=== PATIENT | male | born 1960 | race Caucasian/White ===

== ENCOUNTER → 2017-06-28 10:03 | Emergency (ER) | payer OTHER ==
[~2017-06-28 10:03] MED LIST: NS 0.9% 1000 ML* 1,000 ML IV ONE
[2017-06-28 10:58] LABS: Hematocrit 46 % (42-52); Hemoglobin 15.5 g/dl (14.0-18.0); Mean Corpuscular HGB Conc 34 g/dl (31-36); Mean Corpuscular Hemoglobin 31 pg (27-31); Mean Corpuscular Volume 92 fL (80-94); Mean Platelet Volume 9 um3 (7.4-10.4); Red Blood Count 4.97 10^6/ul (4.0-5.4); Red Cell Distribution Width 13 % (10.5-15); White Blood Count 7.4 10^3/ul (3.5-10.8)
[2017-06-28 11:10] LABS: Albumin 4.2 g/dL (3.2-5.2); BUN/Creatinine Ratio 13.5 (8-20); C Reactive Protein 60.56 mg/L (< 5.00); Calcium 9.7 mg/dL (8.6-10.3); EGFR African American 113.3 (>60); EGFR Non-African American 88.1 (>60); Globulin 3.3 g/dL (2-4); Potassium 3.5 mmol/L (3.5-5.0); Total Protein 7.5 g/dL (6.4-8.9)
--- NOTE | 2017-06-28 11:34 | RAD ---
HISTORY: Jaundice, elevated LFTs and abdominal pain COMPARISONS: Similar ultrasound from the previous day that showed mild biliary duct dilatation. TECHNIQUE: Multiple transverse and longitudinal ultrasound images were obtained of the right upper quadrant. FINDINGS: LIVER: The liver is normal in dimensions and echogenicity. Normal hepatic and portal venous blood flow is duplicated with color flow imaging. There is no gross intrahepatic biliary duct dilatation. GALLBLADDER AND EXTRAHEPATIC BILIARY DUCT: The gallbladder appears completely filled with echogenic shadowing gallstones. There is no pericholecystic fluid or gallbladder wall thickening. The common bile duct measures a maximum diameter of 8 mm. PANCREAS: The portions of the pancreas not obscured by bowel gas are normal in appearance. RIGHT KIDNEY: The right kidney is normal in size, morphology and echogenicity. AORTA AND IVC: The visualized portions are normal in appearance and not pathologically dilated. IMPRESSION: CHOLELITHIASIS WITH A DILATED COMMON BILE DUCT CAN BE SEEN IN THE SETTING OF GALLSTONE BILIARY DUCT OBSTRUCTION. CLINICALLY WARRANTED FURTHER CHARACTERIZATION COULD BE MADE WITH A HIDA SCAN.
--- NOTE | 2017-06-28 13:11 | ED ---
Angelo Gamble Angela scribed for Gregory Garcia MD on 06/28/17 at 1024 . GI/ HPI - HPI Summary HPI Summary: This pt is a 57 y/o male presenting to [facility] referred by his PCP, Dr. Wyman, for elevated bilirubin and jaundice. Pt reports he was sent by Dr. Wyman for a possible blocked bile duct due to biliruin of 8.5. He states he had an US yesterday in [place] and was found to have multiple gallstones. Pt notes that he had abd pain that began 3 days ago (06/25), intermittent dark urine x2 days, nausea x2 days. Pt reports he has not eaten since 3 days ago, 06/25 at night. Today the pt denies any pain, nausea, vomiting. He states feeling well today, and better than the past few days. - History of Current Complaint Chief Complaint: EDAbdPain Time Seen by Provider: 06/28/17 10:15 Stated Complaint: DARK URINE/SENT BY DR WYMAN Hx Obtained From: Patient Onset/Duration: Started Days Ago, Resolved Timing: Lasting Days Current Severity: None Pain Intensity: 0 - none Location of Pain: Diffuse Associated Signs and Symptoms: Positive: Nausea - now resolved, Abdominal Pain - now resolved, Other: - elevated bilirubin, jaundice, dark urine. Negative: Vomiting - Allergy/Home Medications Allergies/Adverse Reactions: Allergies Allergy/AdvReac Type Severity Reaction Status Date / Time Ampicillin Allergy Severe Fever Verified 06/28/17 10:12 Sulfamethoxazole Allergy Severe Rash Verified 06/28/17 10:12 w/Trimethoprim [From Bactrim] Penicillins Allergy Unknown Unknown Verified 06/28/17 10:12 Reaction Details Sulfa Antibiotics Allergy Unknown Hives Verified 06/28/17 10:12 Amoxicillin Allergy See Comment Verified 06/28/17 10:12 PMH/Surg Hx/FS Hx/Imm Hx Endocrine/Hematology History: Denies: Hx Diabetes Cardiovascular History: Reports: Hx Angina Respiratory History: Denies: Hx Asthma, Hx Chronic Obstructive Pulmonary Disease (COPD) - Immunization History Date of Tetanus Vaccine: unknown Infectious Disease History: No Infectious Disease History: Denies: Traveled Outside the [place] in Last 30 Days - Family History Known Family History: Positive: Diabetes - father, Other - Father: afib Family History: Mother: no hx of CAD - Social History Alcohol Use: Rare Substance Use Type: Reports: None Smoking Status (MU): Never Smoked Tobacco Review of Systems Constitutional: Other - elevated bilirubin, decreased PO intake Negative: Fever, Chills Eyes: Negative Cardiovascular: Negative Respiratory: Negative Positive: Abdominal Pain - now resolved, Nausea - now resolved. Negative: Vomiting Genitourinary: Other - dark urine color Musculoskeletal: Negative Skin: Other - jaundice Neurological: Negative All Other Systems Reviewed And Are Negative: Yes Physical Exam - Summary Physical Exam Summary: VITAL SIGNS: Reviewed. GENERAL: Patient is a well-developed and nourished male who is lying comfortable in the stretcher. Patient is not in any acute respiratory distress. Patient is a little bit dry. HEAD AND FACE: No signs of trauma. No ecchymosis, hematomas or skull depressions. No sinus tenderness. EYES: PERRLA, EOMI x 2, No injected conjunctiva, no nystagmus. EARS: Hearing grossly intact. Ear canals and tympanic membranes are within normal limits. MOUTH: Oropharynx within normal limits. NECK: Supple, trachea is midline, no adenopathy, no JVD, no carotid bruit, no c- spine tenderness, neck with full ROM. CHEST: Symmetric, no tenderness at palpation LUNGS: Clear to auscultation bilaterally. No wheezing or crackles. CVS: Regular rate and rhythm, S1 and S2 present, no murmurs or gallops appreciated. ABDOMEN: Soft, non-tender. No signs of distention. No rebound no guarding, and no masses palpated. Bowel sounds are normal. EXTREMITIES: FROM in all major joints, no edema, no cyanosis or clubbing. NEURO: Alert and oriented x 3. No acute neurological deficits. Speech is normal and follows commands. SKIN: Dry and warm. Pt is jaundice. Triage Information Reviewed: Yes Vital Signs On Initial Exam: Initial Vitals Temp Pulse Resp BP Pulse Ox 97.3 F 86 16 139/86 96 06/28/17 10:08 06/28/17 10:08 06/28/17 10:08 06/28/17 10:08 06/28/17 10:08 Vital Signs Reviewed: Yes Diagnostics - Vital Signs Vital Signs Temp Pulse Resp BP Pulse Ox 06/28/17 10:08 97.3 F 86 16 139/86 96 - Laboratory Lab Results: Lab Results 12/02/17 12/02/17 12/02/17 Range/Units 10:35 10:35 10:35 WBC (3.5-10.8) 10^3/ul RBC (4.0-5.4) 10^6/ul Hgb (14.0-18.0) g/dl Hct (42-52) % MCV (80-94) fL MCH (27-31) pg MCHC (31-36) g/dl RDW (10.5-15) % Plt Count (150-450) 10^3/ul MPV (7.4-10.4) um3 Neut % (Auto) (38-83) % Lymph % (Auto) (25-47) % Bath % (Auto) (1-9) % Eos % (Auto) (0-6) % Baso % (Auto) (0-2) % Absolute Neuts (auto) (1.5-7.7) 10^3/ul Absolute Lymphs (auto) (1.0-4.8) 10^3/ul Absolute Monos (auto) (0-0.8) 10^3/ul Absolute Eos (auto) (0-0.6) 10^3/ul Absolute Basos (auto) (0-0.2) 10^3/ul Absolute Nucleated RBC 10^3/ul Nucleated RBC % INR (Anticoag Therapy) 0.94 (0.77-1.02) APTT 28.0 (26.0-36.3) seconds Sodium 134 (133-145) mmol/L Potassium 3.5 (3.5-5.0) mmol/L Chloride 98 L (101-111) mmol/L Carbon Dioxide 26 (22-32) mmol/L Anion Gap 10 (2-11) mmol/L BUN 12 (6-24) mg/dL Creatinine 0.89 (0.67-1.17) mg/dL Est GFR ( Amer) 113.3 (>60) Est GFR (Non-Af Amer) 88.1 (>60) BUN/Creatinine Ratio 13.5 (8-20) Glucose 127 H (70-100) mg/dL Calcium 9.7 (8.6-10.3) mg/dL Total Bilirubin 9.00 H (0.2-1.0) mg/dL AST 189 H (13-39) U/L ALT 508 H (7-52) U/L Alkaline Phosphatase 235 H (34-104) U/L Total Creatine Kinase 60 (10-223) U/L C-Reactive Protein 60.56 H (< 5.00) mg/L B-Natriuretic Peptide 78 ( - 100) pg/mL Total Protein 7.5 (6.4-8.9) g/dL Albumin 4.2 (3.2-5.2) g/dL Globulin 3.3 (2-4) g/dL Albumin/Globulin Ratio 1.3 (1-3) Amylase 16 L (29-103) U/L Lipase 103 H (11.0-82.0) U/L 06/28/17 Range/Units 10:35 WBC 7.4 (3.5-10.8) 10^3/ul RBC 4.97 (4.0-5.4) 10^6/ul Hgb 15.5 (14.0-18.0) g/dl Hct 46 (42-52) % MCV 92 (80-94) fL MCH 31 (27-31) pg MCHC 34 (31-36) g/dl RDW 13 (10.5-15) % Plt Count 198 (150-450) 10^3/ul MPV 9 (7.4-10.4) um3 Neut % (Auto) 74.1 (38-83) % Lymph % (Auto) 10.8 L (25-47) % Bath % (Auto) 13.7 H (1-9) % Eos % (Auto) 1.1 (0-6) % Baso % (Auto) 0.3 (0-2) % Absolute Neuts (auto) 5.5 (1.5-7.7) 10^3/ul Absolute Lymphs (auto) 0.8 L (1.0-4.8) 10^3/ul Absolute Monos (auto) 1.0 H (0-0.8) 10^3/ul Absolute Eos (auto) 0.1 (0-0.6) 10^3/ul Absolute Basos (auto) 0 (0-0.2) 10^3/ul Absolute Nucleated RBC 0.01 10^3/ul Nucleated RBC % 0.1 INR (Anticoag Therapy) (0.77-1.02) APTT (26.0-36.3) seconds Sodium (133-145) mmol/L Potassium (3.5-5.0) mmol/L Chloride (101-111) mmol/L Carbon Dioxide (22-32) mmol/L Anion Gap (2-11) mmol/L BUN (6-24) mg/dL Creatinine (0.67-1.17) mg/dL Est GFR ( Amer) (>60) Est GFR (Non-Af Amer) (>60) BUN/Creatinine Ratio (8-20) Glucose (70-100) mg/dL Calcium (8.6-10.3) mg/dL Total Bilirubin (0.2-1.0) mg/dL AST (13-39) U/L ALT (7-52) U/L Alkaline Phosphatase (34-104) U/L Total Creatine Kinase (10-223) U/L C-Reactive Protein (< 5.00) mg/L B-Natriuretic Peptide ( - 100) pg/mL Total Protein (6.4-8.9) g/dL Albumin (3.2-5.2) g/dL Globulin (2-4) g/dL Albumin/Globulin Ratio (1-3) Amylase (29-103) U/L Lipase (11.0-82.0) U/L Result Diagrams: 06/28/17 10:35 06/28/17 10:35 Lab Statement: Any lab studies that have been ordered have been reviewed, and results considered in the medical decision making process. - Ultrasound No standard instances Ultrasound Interpretation: Positive (See Comments) - Gallbladder US IMPRESSION: Cholelithiasis with a dilated common bile duct can be seen in the setting of gallstone biliary duct obstruction. As clinically warranted further characterization could be made with a hida scan. ED physician has reviewed this radiology report and agrees. Ultrasound Interpretation Completed By: Radiologist - EKG 1027 Cardiac Rate: NL EKG Rhythm: Sinus Rhythm - at 84 bpm EKG Interpretation: Left bundle branch block EKG Comparison: No Significant Change - unchanged from prior EKG done on . Re-Evaluation - Re-Evaluation First Eval Re-Evaluation Time: 12:55 Comment: I discussed the plan to transfer with the pt and . They both understand and agree. GIGU Course/Dx - Course Assessment/Plan: This pt is a 57 y/o male presenting to [facility] referred by his PCP, Dr. Wyman, for elevated bilirubin and jaundice. Pt reports he was sent by Dr. Wyman for a possible blocked bile duct due to biliruin of 8.5. He states he had an US yesterday in [place] and was found to have multiple gallstones. Pt notes that he had abd pain that began 3 days ago (06/25), intermittent dark urine x2 days, nausea x2 days. Pt reports he has not eaten since 3 days ago, at night. Today the pt denies any pain, nausea, vomiting. He states feeling well today, and better than the past few days. Test results show glucose of 127 , total bilirubin of 9, AST of 189, ALT of 508, alkaline phosphatase of 235, CRP of 60.56, and lipase of 103. US gallbladder shows cholelithiasis with a dilated common bile duct can be seen in the setting of gallstone biliary duct obstruction. As clinically warranted further characterization could be made with a hida scan. I discussed the case with Dr. Kimble, surgeon, and he reports the pt needs an ERCP from GI before he can consult with the pt. I also discussed with Dr. Kincaid, hospitalist, and he states that he cannot accept the pt without GI services. Therefore, he recommends the pt to be transferred to [facility]. I discussed with Ms. Celia RN from the Transfer Center , who accepted the pt for Dr. Novoa to transfer to [facility] for a possible ERCP. Pt is hemodynamically stable, alert and oriented x3. Pt is aware of the transfer disposition and he agrees with the plan. - Diagnoses Differential Diagnoses - Male: Cholecystitis, Cholelithiasis, Gall Bladder Disease Provider Diagnoses: acute jaundice, secondary to CBD obstruction, possible ERCP - Physician Notifications Discussed Care Of Patient With: Julio Kimble Time Discussed With Above Provider: 11:52 Instructed by Provider To: Other - I discussed the pt's case with Dr. Kimble, surgeon. He reports the pt needs ERCP from GI before he can consult with the pt. [12:03] I discussed with Dr. Kincaid, hospitalist, who states he cannot accept the pt without GI services and recommends transfer. [12:42] I spoke with JUAN Yang, from the [facility] in [facility], who accepts the pt for Dr. Novoa to the [facility] in [facility]. Discharge - Discharge Plan Condition: Stable Disposition: TRANS HIGHER LVL OF CARE FAC Discharge Disposition Comment: [facility], [facility] Referrals: Alma Wyman MD [Primary Care Provider] - The documentation as recorded by the Angelo hoyt Angela accurately reflects the service I personally performed and the decisions made by me, Gregory Garcia MD.
[2017-06-28 13:35] VITALS: BP 167/96
== END | disposition short-term general hospital (02) ==
LOC: ED 10:03
DX: K80.21 Calculus of gallbladder without cholecystitis with obstruction (principal); R11.0 Nausea; R10.9 Unspecified abdominal pain; R17 Unspecified jaundice
CPT/HCPCS: 36415; 76705; 80053; 82150; 82550; 83690; 83880; 85025; 85610; 85730; 86140; 93005; 99285

== ENCOUNTER 2017-07-15 07:19 | Day surgery (SDC) | payer OTHER ==
[~2017-07-15 07:19] MED LIST changes: +Buffered Lidocaine 0.9% SYRIN* 5 ML/SYR SYRINGE INTRADERM ONE; +Dexamethasone IV* 4 MG/ML 1 ML (4 MG) IV SLOW PU ONE; +Famotidine IV* 10 MG/ML 2 ML (20 mg) IV ONE; -NS 0.9% 1000 ML* 1,000 ML IV ONE
[2017-07-15] MEDS ORDERED: Dexamethasone IV* 4 MG/ML 1 ML (4 MG) ONE (07:36)
[2017-07-15] MEDS ORDERED: Famotidine IV* 10 MG/ML 2 ML (20 mg) ONE (07:36)
[2017-07-15] MEDS ORDERED: Clindamycin 900 MG IVPREMIX(* 900 MG/50 ML SDV IV ONE (07:36)
[2017-07-15] MEDS ORDERED: Buffered Lidocaine 0.9% SYRIN* 5 ML/SYR SYRINGE ONE (07:37)
[2017-07-15] MEDS ORDERED: GENTAMICIN ADULT IVPB ONE (08:00)
[2017-07-15] MEDS ORDERED: NS 0.9% IVPB ONE (08:00)
[2017-07-15] MEDS ORDERED: Bupivacaine 0.25% SDV* 30 ML ONE (09:11)
[2017-07-15] MEDS ORDERED: fentaNYL* 50 MCG/ML 2 ML VIAL (100 MCG VIAL) ONE ×2 (09:30→10:22)
[2017-07-15] MEDS ORDERED: Midazolam* 1 MG/ML 5 ML VIAL (5 MG) ONE (09:30)
[2017-07-15] MEDS ORDERED: Lidocaine 2% PF * 5 ML VIAL ONE (09:32)
[2017-07-15] MEDS ORDERED: Glycopyrrolate IV* 0.2 MG/ML 1 ML VIAL ONE (09:32)
[2017-07-15] MEDS ORDERED: Mivacurium Chloride* 20 MG/10 ML VIAL IV ONE (09:32)
[2017-07-15] MEDS ORDERED: Propofol* 10 MG/ML 20 ML BTL IV PUSH ONE (09:32)
[2017-07-15] MEDS ORDERED: Ketorolac INJ* 30 MG/ML 1 ML VIAL ONE (09:48)
[2017-07-15] MEDS ORDERED: Ondansetron INJ* 2 MG/ML VIAL ONE (10:00)
[2017-07-15] MEDS ORDERED: EPHEDrine (Pressors)* 50 MG/ML VIAL ONE (10:01)
[2017-07-15] MEDS ORDERED: fentaNYL* 50 MCG/ML 2 ML VIAL (100 MCG VIAL) IV PRN (10:10)
[2017-07-15] MEDS ORDERED: oxyCODONE/Acetamin 5/325 MG* TAB PO PRN ×2 (10:10→12:13)
[2017-07-15] MEDS ORDERED: DiMENhydriNATE IV* 50 MG/ML VIAL IV PUSH PRN (10:10)
[2017-07-15] MEDS ORDERED: PROCHLORPERAZINE INJ 5 MG/ML 2 ML VIAL IV PRN (10:10)
[2017-07-15] MEDS ORDERED: HYDROcodone/ACETAMIN 5-325 MG* 1 TAB PO PRN (10:10)
[2017-07-15 14:39] VITALS: BP 147/81
--- NOTE | 2017-07-16 04:36 | OP ---
CC: Alma Wyman MD * DATE OF OPERATION: 07/15/17 - [facility] DATE OF : 60 SURGEON: Erwin Pappas MD CAST IRON DRAIN PIPE LAYER: EMANI Chavarria ANESTHESIOLOGIST: Jonathan Cunningham MD. ANESTHESIA: General endotracheal. PRE-OP DIAGNOSIS: Symptomatic gallstones. POST-OP DIAGNOSIS: Symptomatic gallstones. OPERATIVE PROCEDURE: Laparoscopic cholecystectomy. ESTIMATED BLOOD LOSS: Less than 20 mL. IV FLUIDS: Crystalloid. SPECIMEN: Gallbladder and contents. DRAINS: None. COMPLICATIONS: None. COUNTS: Instrument, needle, and sponge counts were correct. DESCRIPTION OF PROCEDURE: The patient was brought to the operating room and placed on the table supine. Sequential compression devices were placed on both lower extremities and general anesthesia was administered. His abdomen was prepped and draped in the usual sterile fashion and he received appropriate intravenous antibiotics. Time-out was performed. Local anesthetic was infiltrated into the skin and soft tissue prior to making incision and a curvilinear infraumbilical incision was created and then a vertical incision was created using an open technique to enter the peritoneal cavity and then a 12-mm trocar was placed and carbon dioxide was insufflated to a pressure of 15 mmHg. Under direct visualization a 12-mm trocar was placed in the subxiphoid position. Two 5-mm trocars were placed in the right upper quadrant. The gallbladder appeared to be chronically inflamed with distention. The gallbladder appeared to be filled with stones. The gallbladder was grasped at the fundus and retracted superiorly. There was great difficulty in manipulating the infundibulum due to the fact the gallbladder was so distended. The peritoneum investing the gallbladder was scored on the medial and lateral aspects and over the area of the cystic artery which was able to be bluntly dissected out and it was clipped and divided. However, during dissection at one point the gallbladder was entered and there was some clear bile forthcoming , but although it was aspirated there was no improvement in the mobilization of the gallbladder. Ultimately it was decided to perform a dome down dissection and this was performed by grasping the thickened peel of the gallbladder that was attached to the liver and then using the hook cautery the gallbladder was freed from attachments to the liver and an avascular plane was maintained as the gallbladder was freed down to the area of the infundibulum. At this point, the manipulation again was difficult and so in order to try to complete the dissection the gallbladder was divided at the infundibulum, and there were innumerable faceted stones noted, and these were retrieved with the endoscopic spoon biopsy forceps and the gallbladder which was divided was placed into endoscopic retrieval bag and positioned above the liver. After assuring showing retrieval of all the stones that had spilled, the attention was turned to the remaining portion of the gallbladder attached to the cystic duct and there were numerous stones within this, which were removed using the [place] forceps. After complete emptying of the gallbladder of all stones then the remaining portion of the gallbladder was dissected free by blunt dissection until the infundibulum tapered to the cystic duct. The duct was then clipped with the large endoscopic clips, and was divided and the gallbladder specimen was then retrieved through the infraumbilical site. This was difficult due to the number of stones within the gallbladder and required opening of the specimen bag in order to remove the stones as well as enlarging the fascial defect in order to be able to remove the specimen. Having retrieved the specimen intact, inspection revealed clips to be intact and hemostasis excellent. Copious lavage of the right upper quadrant was performed until clear. The ports were then removed under direct visualization and carbon dioxide was released. The infraumbilical wound was closed with 0 Vicryl suture in interrupted fashion to approximate the fascia. The wound was irrigated and then closure was performed with 4-0 Monocryl to approximate the skin edges. The wounds were dressed with Steri-Strips and dressings were applied. The patient tolerated the procedure well. He was extubated uneventfully, he was transferred to the recovery room in stable condition. [id number]/[facility] #: [id number] [facility]ITALSQu[facility]
== END 2017-07-15 14:15 | disposition home or self-care (01) ==
LOC: OR 07:19
PROVIDERS: ATTEND Surgery
PROC: 0FT44ZZ Resection of Gallbladder, Percutaneous Endoscopic Approach (ICD-10-PCS; principal; 2017-07-15 09:00)
DX: K80.20 Calculus of gallbladder without cholecystitis without obstruction (principal); I10 Essential (primary) hypertension; Z98.890 Other specified postprocedural states
CPT/HCPCS: 88304; J1100; J1580; J1885; J2250; J2405; J2704; J3010

== ENCOUNTER 2018-08-02 11:50 | Emergency (ER) | payer OTHER ==
[2018-08-02 12:02] VITALS: BP 151/84
--- NOTE | 2018-08-02 12:46 | UC ---
Abdominal Pain Male HPI - HPI Summary HPI Summary: Onset of epigastric pain on 07/19, began after eating leftover salmon and he attributed it to that. Has had days of pain, with some days with decreased pain which were associated with eating a bland diet. Sleep was disrupted for the first time last night, and tried a single dose of antacid, which gave no relief. Pain increased in severity since last night, with one brief episode of pain the mid chest, resolved in about 10 minutes. Stool passage has been normal aside from mild constipation Hx of impacted gallstones which presented with jaundice and required acute surgery, although he had no associated pancreatitis. - History of Current Complaint Chief Complaint: UCAbdominalPain Stated Complaint: ABD PAIN Time Seen by Provider: 08/02/18 12:28 Hx Obtained From: Patient, Family/[employer] - here with his Onset/Duration: Gradual Onset, Lasting Weeks - 2, episodic Timing: Intermittent Episodes Lasting: - hours Severity Initially: Moderate Severity Currently: Moderate Pain Intensity: 7 Location: Epigastric Radiates to: Back - and left upper quadran. Character: Colicy, Cramping Aggravating Factor(s): Movement Alleviating Factor(s): Position - relieves with forward bending. Associated Signs And Symptoms: Positive: Diaphoresis - Allergies/Home Medications Allergies/Adverse Reactions: Allergies Allergy/AdvReac Type Severity Reaction Status Date / Time prednisone Allergy Severe Palpitation Verified 08/02/18 12:04 s amoxicillin Allergy Intermediate Hives Verified 08/02/18 12:04 ampicillin Allergy Intermediate Hives Verified 08/02/18 12:04 Penicillins Allergy Intermediate Hives Verified 08/02/18 12:04 Sulfa (Sulfonamide Allergy Hives Verified 08/02/18 12:04 Antibiotics) Home Medications: Home Medications Vitamin B Complex CAP* [B Complex CAP*] 1 mg PO DAILY WITH MEAL 08/02/18 [ History Confirmed 08/02/18] PMH/Surg Hx/FS Hx/Imm Hx Previously Healthy: Yes GI/ History: Other - urgent callie in 2017, jaundiced, impacted stones - Surgical History Surgical History: Yes Surgery Procedure, Year, and Place: gall stones removed 2017. choly 2017. vasectomy 2001. tonsils - child - Family History Known Family History: Positive: Cardiac Disease - father, Diabetes - father, Other - Father: afib Family History: Mother: no hx of CAD - Social History Occupation: Employed Full-time Lives: With Family Alcohol Use: Rare Substance Use Type: None Smoking Status (MU): Never Smoked Tobacco Review of Systems All Other Systems Reviewed And Are Negative: Yes Constitutional: Positive: Negative Respiratory: Negative: Shortness Of Breath, Cough Cardiovascular: Negative: Palpitations, Chest Pain Gastrointestinal: Positive: Abdominal Pain, Other - mild decrease in appetite. Is Patient Immunocompromised?: No Physical Exam Triage Information Reviewed: Yes Appearance: Pain Distress - moderate, looks pale and uncomfortable. Vital Signs: Initial Vital Signs Temp 96.1 F 08/02/18 11:55 Pulse 78 08/02/18 11:55 Resp 18 08/02/18 11:55 BP 151/84 08/02/18 11:55 Pulse Ox 100 08/02/18 11:55 Eyes: Positive: Conjunctiva Clear ENT: Positive: Pharynx normal, Other - mildy dry mucous membranes. Neck: Positive: Supple, Nontender, No Lymphadenopathy Respiratory: Positive: Lungs clear, Normal breath sounds Cardiovascular: Positive: RRR, No Murmur Abdomen Description: Positive: Soft, Distended - mildly, Guarding - voluntary guarding with palpation of the left upper quadrant.. Negative: CVA Tenderness ( R), CVA Tenderness (L), Hepatomegaly, Peritoneal Signs, Pulsatile Mass, Splenomegaly Bowel Sounds: Positive: Hypoactive Musculoskeletal Exam: Normal Neurological: Positive: Alert, Muscle Tone Normal Psychological Exam: Normal Skin Exam: Normal Diagnostics - EKG Cardiac Rhythm: Sinus: Normal Ectopy: None EKG Comparison: Other - left bundle branch block Abd Pain Male Course/Dx - Course Course Of Treatment: Discussed concern of progressive epigastric pain, with concern for possible pancreatitis. He will proceed to the emergency room for evaluation. - Differential Dx/Clinical Impression Differential Diagnosis/HQI/PQRI: Pancreatitis, Peptic Ulcer Disease, Renal Colic Provider Diagnosis: Acute abdominal pain in left upper quadrant Discharge - Sign-Out/Discharge Documenting (check all that apply): Patient Departure All imaging exams completed and their final reports reviewed: No Studies - Discharge Plan Condition: Stable Disposition: TRANS HIGHER LVL OF CARE FAC Patient Education Materials: Acute Abdominal Pain (ED) Referrals: Alma Wyman MD [Primary Care Provider] - Additional Instructions: As discussed, my opinion is that your abdominal pain will be best evaluated in the emergency room, due to the need for testing and imaging not available in the convenient care. - Billing Disposition and Condition Condition: STABLE Disposition: Trans Higher Lvl of Care Fac
[2018-08-02] MEDS ORDERED: Al Hydrox/Mg Hydrox/Simet LIQ* 30 ML UDC PO ONE (12:48)
== END 2018-08-02 13:17 | disposition short-term general hospital (02) ==
LOC: UCEAST 11:50
DX: R10.12 Left upper quadrant pain (principal); Z88.8 Allergy status to other drugs, medicaments and biological substances; Z88.0 Allergy status to penicillin; Z88.2 Allergy status to sulfonamides
CPT/HCPCS: 93005; 99212; A9270-GY; G0463

== ENCOUNTER 2018-08-02 13:39 | Inpatient (IN) | payer OTHER ==
[2018-08-02] MEDS ORDERED: NS 0.9% 1000 ML* 2,000 ML IV ONE (14:12)
--- NOTE | 2018-08-02 14:26 | ED ---
Abdominal Pain/Male - HPI Summary HPI Summary: Patient is a 58 y/o M presenting to ED from [facility] with complaints of pain at the LUQ abdomen, onset 07/19/18. is present in the room. He reports Sx began 25 -30 minutes after eating salmon dinner on 07/19/18. Patient states that pain has been constant but waxing and waning since onset, with bland food noting to aggravate Sx. PSHx of ERCP, cholecystecomy in 2017. He states that present pain is similar to the pain he had before his cholecystectomy. Last night, had a light meal of cereal at 2300. At 0100 today, patient states pain radiated into chest. He laid down in prone position and this alleviated pain. Upon waking up this morning, abdominal pain was present. He was not able to alleviate pain which prompted ED visit. In the room, he notes some radiation of pain to back at present as well. No dysuria, no fever, no vomiting, slight nausea reported. Patient states that he only takes vitamin B13 supplement. No Hx of [place]. Patient notes that he had some dark urine 4-5 days ago but notes that this has resolved. Hx of HLD, sciatic, left inguinal hernia. FMHx of gallbladder problems. Patient last water was 15 minutes ago, had Maalox at [facility]. On triage, pain is rated 8/10, nothing is noted to aggravate/alleviate Sx. Home medications and allergies are reviewed. In room, pulse is 70, o2 98, BP 175/99. - History of Current Complaint Stated Complaint: SEVERE ABD PAIN Time Seen by Provider: 08/02/18 13:41 Hx Obtained From: Patient, Family/Electrical Prospecting Supervisor - Onset/Duration: Lasting Weeks - onset 07/19/18, Still Present Timing: Constant, Lasting Weeks - onset 07/19/18 Severity Initially: Moderate Severity Currently: Severe Pain Intensity: 8 Pain Scale Used: 0-10 Numeric - 8/10 Location: Discrete At: LUQ Radiates: Yes Radiates to: Back, Chest - since resolved Character: Sharp Aggravating Factor(s): Food - bland food Alleviating Factor(s): Nothing Associated Signs And Symptoms: Positive: Back Pain, Nausea, Other - no dysuria; chest pain since resolved; dark urine a few days ago,resolved. Negative: Fever , Vomiting - Allergies/Home Medications Allergies/Adverse Reactions: Allergies Allergy/AdvReac Type Severity Reaction Status Date / Time prednisone Allergy Severe Palpitation Verified 08/02/18 13:49 s Penicillins Allergy Intermediate Hives Verified 08/02/18 13:49 Sulfa (Sulfonamide Allergy Hives Verified 08/02/18 13:49 Antibiotics) PMH/Surg Hx/FS Hx/Imm Hx Previously Healthy: No Endocrine/Hematology History: Denies: Hx Diabetes, Hx Thyroid Disease Cardiovascular History: Reports: Hx Angina, Hx Hypercholesterolemia, Hx Hypertension Respiratory History: Denies: Hx Asthma, Hx Chronic Obstructive Pulmonary Disease (COPD) GI History: Reports: Hx Gall Bladder Disease, Hx Jaundice - from a blocked commom bile duct, Other GI Disorders - hernias Denies: Hx Ulcer Musculoskeletal History: Reports: Hx Back Problems - sciatica Sensory History: Reports: Hx Contacts or Glasses - reading Denies: Hx Hearing Aid Opthamlomology History: Reports: Hx Contacts or Glasses - reading Psychiatric History: Reports: Hx Anxiety - Cancer History Hx Chemotherapy: No - Surgical History Surgery Procedure, Year, and Place: gall stones removed 2016. cholecystectomy 2016, [facility] [place]. vasectomy 2001. tonsils - child. hernia, left inguinal Hx Anesthesia Reactions: No Infectious Disease History: No Infectious Disease History: Denies: Hx Hepatitis, Hx Human Immunodeficiency Virus (HIV), Traveled Outside the [place] in Last 30 Days - Family History Known Family History: Positive: Cardiac Disease - father, Diabetes - father, Other - gallbladder problems; Father: afib Family History: Mother: no hx of CAD - Social History Lives: With Family Alcohol Use: Rare Substance Use Type: Reports: None Smoking Status (MU): Never Smoked Tobacco Review of Systems Negative: Fever Positive: Chest Pain - resolved radiating pain Respiratory: Negative Positive: Abdominal Pain - with radiation to back; some radiation to chest that has since resolved , Nausea. Negative: Vomiting Positive: other - dark urine a few days ago, resolved . Negative: dysuria Skin: Negative Neurological: Negative Psychological: Normal All Other Systems Reviewed And Are Negative: Yes Physical Exam - Summary Physical Exam Summary: Appearance: Well-appearing, moderate pain distress, well-nourished, tall stature Skin: Warm, color reflects adequate perfusion, dry Head: Normal Head/Face inspection, atraumatic Eyes: Conjunctiva clear ENT: Normal inspection Neck: Supple, no nodes, no JVD Respiratory: Lungs clear, normal breath sounds, no respiratory distress Cardio: RRR, No murmur, pulses normal, brisk capillary refill Abdomen: Soft, LUQ tenderness with guarding and no rebound, spleen not palpable , nondistended Bowel sounds: Present Musculoskeletal: Strength Intact/ROM intact, no calf tenderness, no edema. Psychological: Normal Neuro: Alert, muscle tone normal, no focal deficit Triage Information Reviewed: Yes Vital Signs On Initial Exam: Initial Vitals Temp Pulse Resp BP Pulse Ox 97.6 F 70 16 165/93 100 08/02/18 13:46 08/02/18 13:46 08/02/18 13:46 08/02/18 13:46 08/02/18 13:46 Vital Signs Reviewed: Yes Diagnostics - Vital Signs Vital Signs Temp Pulse Resp BP Pulse Ox 08/02/18 13:46 97.6 F 70 16 165/93 100 - Laboratory Result Diagrams: 08/03/18 06:39 08/04/18 05:50 Lab Statement: Any lab studies that have been ordered have been reviewed, and results considered in the medical decision making process. - CT ABD/PEL CT CT Interpretation Completed By: Radiologist Summary of CT Findings: ABD/PEL CT IMPRESSION. 1. There is been minimal progression of the oral contrast with most of the contrast. residing in the gastric lumen. Please correlate to signs or symptoms of gastroparesis. and/or bowel dysmotility. 2. There is questionable wall thickening of the distal gastric antrum up to the pylorus,. but this could simply be the result of underdistention. 3. In the proximal small bowel there are air-fluid levels without wall thickening or. definite surrounding inflammatory change of indeterminate clinical significance. 4. There is questionable identification of a diminutive appendix, nevertheless there are. no acute inflammatory changes in the right lower quadrant characteristic of acute. appendicitis. 5. The patient is status post cholecystectomy and the common bile duct does not measure. water than 6 mm. 6. There are additional chronic and degenerative changes described in body the report. that are unlikely to be directly related to the patient's current presentation. THIS REPORT WAS REVIEWED BY ED PHYSICIAN. - Ultrasound No standard instances Ultrasound Interpretation Completed By: Radiologist Summary of Ultrasound Findings: LIVER US IMPRESSION: 1. A LARGE AMOUNT OF OVERLYING BOWEL GAS LIMITS SONOGRAPHIC IMAGING. 2. THERE IS NO INTRAHEPATIC BILIARY DUCT DILATATION BUT THE COMMON BILE DUCT IS NOT. VISUALIZED. THIS REPORT WAS REVIEWED BY ED PHYSICIAN. - EKG 1433 Cardiac Rate: NL - rate of 63 bpm EKG Rhythm: Sinus Rhythm ST Segment: Non-Specific Ectopy: None EKG Comparison: No Significant Change - compared to EKG from 06/28/17 and from EKG earlier today Summary of EKG Findings: EKG showed sinus rhythm with rate of 63 BPM, prolonged ME (217), prolonged IVCT (162), in LBBB, nl QTc, left axis, no acute changes, no significant changes compared to EKG at [facility] and 06/28/17 Re-Evaluation - Re-Evaluation First Eval Re-Evaluation Time: 15:48 Change: Improved Comment: Pain is controlled, patient understands reason for admission. He denies alcohol consumption, has not been on antibiotics, does not take acetaminophen. Abdominal Pain Fem Course/Dx - Course Course Of Treatment: Patient is a 58 y/o M presenting to ED from [facility] with complaints of pain at the LUQ abdomen onset 07/19/18. is present in the room. He reports Sx began 25-30 minutes after eating salmon dinner on 07/19. Patient states that pain has been constant but waxing and waning since onset, with bland food noting to aggravate Sx. PSHx of ERCP, cholecystecomy in 2017. He states that present pain is similar to the pain he had before his cholecystectomy. Last night, had a light meal of cereal at 2300. At 0100 today, patient states pain radiated into chest. He laid down in prone position and this alleviated pain. Upon waking up this morning, abdominal pain was present. He was not able to alleviate pain which prompted ED visit. In the room, he notes some radiation of pain to back at present as well. No dysuria, no fever, no vomiting, slight nausea reported. Patient states that he only takes vitamin B13 supplement. No Hx of WI. Patient notes that he had some dark urine 4-5 days ago but notes that this has resolved. Hx of HLD, sciatic, left inguinal hernia. FMHx of gallbladder problems. LIVER US IMPRESSION: 1. A LARGE AMOUNT OF OVERLYING BOWEL GAS LIMITS SONOGRAPHIC IMAGING. 2. THERE IS NO INTRAHEPATIC BILIARY DUCT DILATATION BUT THE COMMON BILE DUCT IS NOT. VISUALIZED. EKG showed sinus rhythm with rate of 63 BPM, prolonged ME (217), prolonged IVCT (162 ), in LBBB, nl QTc, left axis, no acute changes, no significant changes compared to EKG at [facility] and 06/28/17. Labs showed normal WBC count, absolute lymphs 0.3, glucose 135, total bilirubin 3.1, AST 1161, ALT 813, alk phos 155, ammonia 53, trop 0.01, CRP 7.38, BNP 55, amylase 28, lipase <10. ABD/ PEL CT IMPRESSION. 1. There is been minimal progression of the oral contrast with most of the contrast. residing in the gastric lumen. Please correlate to signs or symptoms of gastroparesis. and/or bowel dysmotility. 2. There is questionable wall thickening of the distal gastric antrum up to the pylorus,. but this could simply be the result of underdistention. 3. In the proximal small bowel there are air-fluid levels without wall thickening or. definite surrounding inflammatory change of indeterminate clinical significance. 4. There is questionable identification of a diminutive appendix, nevertheless there are. no acute inflammatory changes in the right lower quadrant characteristic of acute. appendicitis. 5. The patient is status post cholecystectomy and the common bile duct does not measure. water than 6 mm, considered normal post cholecytectomy. 6. There are additional chronic and degenerative changes described in body the report. that are unlikely to be directly related to the patient's current presentation. During ED course, patient was given fluids, Zofran 4 mg IV ED ONCE and morphine 4 mg IV ED ONCE ONE. Patient's case was discussed with Dr. He at 3752. Gastro consult is advised. 1541 - Dr. Guthrie was consulted on patient's case, he states that patient is appropriate for admission. 1547 - Dr. He was consulted on the patient's case once more, he accepts for admission. - Diagnoses Differential Diagnosis/HQI/PQRI: Gall Bladder Disease, Pancreatitis, Renal Colic Provider Diagnoses: Jaundice, Elevated LFTs, LUQ pain - Provider Notifications Discussed Care Of Patient With: Richie He Time Discussed With Above Provider: 15:34 Instructed by Provider To: Other - Patient's case was discussed with Dr. He at 1534. Gastro consult is advised. 1541 - Dr. Guthrie was consulted on patient' s case, he states that patient is appropriate for admission. 1547 - Dr. He was consulted on the patient's case once more, he accepts for admission Discharge - Sign-Out/Discharge Documenting (check all that apply): Patient Departure - admit All imaging exams completed and their final reports reviewed: Yes - Discharge Plan Condition: Stable Disposition: ADMITTED TO [facility] - Billing Disposition and Condition Condition: STABLE Disposition: Admitted to [facility] - Attestation Statements Document Initiated by Tje: Yes Documenting Scribe: GURINDER BOURNE Provider For Whom Sisi is Documenting (Include Credential): DAO BLACKWOOD MD Scribe Attestation: GURINDER Gamble , scribed for DAO BLACKWOOD MD on 08/10/18 at 1831. Scribe Documentation Reviewed: Yes Provider Attestation: The documentation as recorded by the GURINDER hoyt accurately reflects the service I personally performed and the decisions made by me, DAO BLACKWOOD MD Status of Scribe Document: Viewed
[2018-08-02] MEDS ORDERED: Morphine VIAL* 4 MG/ML VIAL (1 ml vial) IV ONE (14:31)
[2018-08-02] MEDS ORDERED: Ondansetron INJ* 2 MG/ML VIAL IV ONE (14:31)
[2018-08-02 14:51] LABS: ABS Basophils 0 10^3/ul (0-0.2); ABS Eosinophils 0 10^3/ul (0-0.6); ABS Lymphocytes 0.3 10^3/ul (1.0-4.8); ABS Monocytes 0.6 10^3/ul (0-0.8); ABS Neutrophils 5.7 10^3/ul (1.5-7.7); ABS Nucleated RBC 0 10^3/ul; Eosinophil % 0.1 %; Hematocrit 46 % (42-52); Hemoglobin 15.5 g/dl (14.0-18.0); Lymphocyte % 5.3 %; Mean Corpuscular HGB Conc 34 g/dl (31-36); Mean Corpuscular Hemoglobin 31 pg (27-31); Mean Corpuscular Volume 92 fL (80-94); Mean Platelet Volume 8.5 fL (7.4-10.4); Nucleated Red Blood Cells % 0.1; Platelet Count 213 10^3/ul (150-450); Red Blood Count 5.02 10^6/ul (4.00-5.40); Red Cell Distribution Width 13 % (10.5-15); White Blood Count 6.6 10^3/ul (3.5-10.8)
[2018-08-02 14:57] LABS: INR 0.94 (0.77-1.02)
[2018-08-02 15:02] LABS: Albumin 4.2 g/dL (3.2-5.2); Albumin/Globulin Ratio 1.1 (1-3); Alkaline Phosphatase 155 U/L (34-104); Amylase 28 U/L (29-103); Anion Gap 8 mmol/L (2-11); BUN/Creatinine Ratio 15.5 (8-20); Blood Urea Nitrogen 13 mg/dL (6-24); C Reactive Protein 7.38 mg/L (<8.01); CO2 Carbon Dioxide 28 mmol/L (22-32); Calcium 9.4 mg/dL (8.6-10.3); Chloride 101 mmol/L (101-111); Creatine Kinase 54 U/L (10-223); EGFR Non-African American 93.9 (>60); Globulin 3.7 g/dL (2-4); Glucose 135 mg/dL (70-100); Magnesium 2.1 mg/dL (1.9-2.7); Potassium 3.8 mmol/L (3.5-5.0); Sodium 137 mmol/L (135-145); Total Protein 7.9 g/dL (6.4-8.9)
[2018-08-02 15:20] LABS: ALT 813 U/L (7-52); AST 1161 U/L (13-39)
[2018-08-02 15:53] LABS: Acetaminophen < 15 mcg/mL
[2018-08-02] MEDS ORDERED: Iohexol 300* (CONTRAST) 10 ML SDV IV ONE (16:03)
[2018-08-02] MEDS ORDERED: Ondansetron INJ* 2 MG/ML VIAL IV PRN (18:35)
[2018-08-02] MEDS ORDERED: Morphine INJ* 2 MG/ML 1 ML SYRINGE (TWO MG - NEW SYRINGE VERSION) IV PRN (18:35)
[2018-08-02] MEDS: NS 0.9% 1000 ML* 1,000 ML IV SCH (20:47)
--- NOTE | 2018-08-02 23:01 | CONS ---
CC: Dr. Wyman.* CONSULTATION REPORT: DATE OF CONSULTATION: 08/02/18 REQUESTING PHYSICIAN: Dr. Hightower in the emergency room. PRIMARY CARE PHYSICIAN: Dr. Wyman. INDICATION: Abdominal pain. NARRATIVE: Mr. Perez is a very pleasant 58-year-old gentleman who states that he developed abdominal pain beginning a few days before [place] that has progressively worsened to the point where last night going into this morning, he was extremely uncomfortable, rated it as a 10/10, finally he decided to come to the emergency room. He states that he has had this type of pain before. He did have his gallbladder removed approximately 13 months ago and had pain just like this before that. He denies any fevers or chills. His urine was dark a few days ago, but has resolved. His appetite is diminished. His weight is stable. He denies any acetaminophen use. No IV drug use. No alcohol use. No family history of liver disease. He states that this feels very similar to his gallbladder attack 13 months ago. PAST MEDICAL HISTORY: Significant for: 1. Hyperlipidemia. 2. Sciatica. 3. Inguinal hernia repair. 4. Hypertension. 5. Anxiety. MEDICATIONS: 1. Vitamins PAST SURGICAL HISTORY: 1. Cholecystectomy in 17. 2. Vasectomy. 3. Tonsillectomy. ALLERGIES: PREDNISONE, PENICILLIN, and SULFA. FAMILY HISTORY: Significant for diabetes, coronary artery disease. SOCIAL HISTORY: No tobacco. No alcohol. REVIEW OF SYSTEMS: Twelve systems were reviewed, other than that mentioned in the HPI, were unremarkable. PHYSICAL EXAM: Temperature is 98.5, blood pressure is 132/82, pulse is 90, respiratory rate of 16, O2 sat of 98% on room air. General: Well-appearing male, sitting upright in bed, alert, oriented, pleasant, and fluent. HEENT: Mucous membranes are moist without lesions, ulcers, or exudate. Neck is supple. Trachea is midline. Head is normocephalic, atraumatic. Heart: Regular rate and rhythm. Lungs: Clear to auscultation. Abdomen: Positive bowel sounds. Soft, nontender, nondistended. No hepatosplenomegaly, masses, rebound, or guarding. Skin is warm and dry. No jaundice. DIAGNOSTIC STUDIES/LAB DATA: Labs of note, white count is 6.6, hemoglobin is 15.5, platelets are 213. INR is 0.94. Chemistries are normal. He does have a glucose of 135, bilirubin is 3.1, AST is 1161, ALT is 813, alk phos is 155, amylase is 28, lipase is 10. He does have an ultrasound of his liver, which unfortunately cannot visualize the common bile duct due to overlying bowel gas. No common bile duct dilatation. CT abdomen and pelvis shows no common bile duct dilatation. ASSESSMENT AND PLAN: A 58-year-old gentleman with elevated liver function tests and pain very similar to his presentation for cholelithiasis in the past. I do wonder if he could have a retained common bile duct stone. He is pain- free at this point, I wonder if he could have passed the stone already. I would like to obtain an MRCP tomorrow. There does not appear to be any drug induced liver disease. His LFTs are somewhat elevated, not quite high enough for shock liver; however, given the fact that I do not hear any issues with hypotension, he looks perfectly fine right now. Thus, retained common bile duct stone is my leading etiology at this point. We will continue to follow along. We will recheck LFTs in the morning in addition to the MRCP. [id number]/[facility] #: [id number] TAWANDA
--- NOTE | 2018-08-02 23:01 | HP ---
CC: Dr. Alma Wyman * HISTORY AND PHYSICAL: DATE OF ADMISSION: 08/02/18 PRIMARY CARE PROVIDER: Dr. Alma Wyman. ATTENDING PHYSICIAN: Dr. Richie He * (dictated by Pamella Berry NP). CHIEF COMPLAINT: Left upper quadrant abdominal pain. HISTORY OF PRESENT ILLNESS: Mr. Perez is a 58-year-old male with past medical history of hypertension, hyperlipidemia, and a cholecystectomy in 2017; who presents to the emergency room today with complaints of left upper quadrant pain. The patient reports that the pain first started around 07/19/18 after eating some salmon. He reports that since he had his gallbladder out, he typically tries to eat a low-fat diet between 6 to 10 g of fat per meal. After eating the salmon, he developed epigastric pain, which he rates 1/10. He reports that the pain started waxing and waning since then. His son who lives with him also was having some abdominal pain, so they were concerned that this was some sort of GI illness. He was eating a bland diet and he reports that approximately 3 days ago the pain stopped altogether. Yesterday evening around 2300, he ate some [employer] Cereal; he went to bed, and around 1:30, he suddenly awoke with severe epigastric pain radiating to the left upper quadrant and into his back. He reports that the pain was crippling and rates it an 8/10 at the worst. The pain was very similar to pain he experienced prior to his cholecystectomy. The pain was somewhat relieved by lying on his stomach or by bending over. He reports that this reduced the pain to a 2/10. He was unable to manage his pain at home and presented to [facility] who ultimately referred him to the emergency room because of the need for imaging. I will note that back in June 2017, when the patient began having problems with his gallbladder, he was found to have a bilirubin of 9 and was found on ultrasound to have intrahepatic ductal dilation and was transferred to [facility] for an ERCP. He had his cholecystectomy a couple weeks after that and has not had any abdominal pain since that time. In the emergency room, the patient reported that his pain on arrival was 5/10, and after receiving 1 dose of morphine, the pain has been reduced to 0/10. His feels as though he appears somewhat yellow. He reports having a slightly loose stool yesterday and some mild nausea yesterday. In the emergency room, the patient was noted to have elevated liver enzymes with a total bili of 3.1, AST of 1161, ALT of 813, and an alk phos of 155. Amylase and lipase were normal. Ammonia was normal and he had a negative troponin and normal EKG. He had a liver ultrasound which was unremarkable for any intrahepatic biliary duct dilation, although the common bile duct was not well visualized. He additionally had an abdomen and pelvis CT, the results are pending at this time. Because of the concern for duct obstruction, the Hospitalist service was asked to evaluate for admission. PAST MEDICAL HISTORY: 1. Hypertension. 2. Hyperlipidemia. PAST SURGICAL HISTORY: 1. Inguinal hernia repair. 2. Tonsillectomy. 3. Cholecystectomy in June 2017. HOME MEDICATIONS: 1. Vitamin B3 one cap p.o. daily. ALLERGIES: PREDNISONE, PENICILLINS, and SULFA. FAMILY HISTORY: The patient's father had a history of coronary artery disease and diabetes. He reports that his mother had some sort of arrhythmia, though is generally healthy. SOCIAL HISTORY: He denies any tobacco or recreational drug use. He reports approximately 1 alcoholic drink per year. He works in IT at [employer]. He lives at home with his and 4 children. His , Sulema, will be his surrogate decision maker in the event he is unable to make his own decisions. REVIEW OF SYSTEMS: An 11-point review of systems was performed and all the pertinent positive and negative findings are in the HPI, all other systems are negative. PHYSICAL EXAMINATION GENERAL: Mr. Perez is a well-developed, well-nourished, middle-aged male, sitting up in bed, in no acute distress. He appears his stated age. VITAL SIGNS: Temp 97.6, heart rate 65, respiratory rate 20, oxygen saturation 96% on room air, blood pressure 142/84. HEENT: Head is atraumatic and normocephalic. Visual paredes are grossly intact. Pupils are equal, round, and reactive to light and accommodation. Extraocular movements intact. Sclerae without icterus. Oral mucous membranes slightly dry. NECK: Full range of motion. Thyroid not palpable. Trachea midline. No lymphadenopathy. RESPIRATORY: Symmetrical chest expansion. No chest wall deformities. Lungs clear to auscultation throughout. No rhonchi, wheezes, or rales. CARDIOVASCULAR: Regular rate and rhythm. S1 and S2 present. No murmurs, rubs , or gallops. No JVD. ABDOMEN: Soft, nondistended. Slight tenderness to the right upper quadrant. Bowel sounds normoactive throughout. No hepatosplenomegaly. EXTREMITIES: Skin warm and smooth bilaterally. No edema, no clubbing or cyanosis. Pedal pulses 2+ bilaterally. MUSCULOSKELETAL: Full range of motion. No pain or deformities. NEUROLOGIC: Awake, alert, and oriented x4. Cranial nerves II through XII grossly intact. Moves all extremities. SKIN: Grossly intact without lesions. There is questionable mild jaundice. DIAGNOSTIC STUDIES AND LABORATORY DATA: WBC 6.6, RBC 5.02, hemoglobin 15.5, hematocrit 46, platelets 213. INR 0.94. Sodium 137, potassium 3.8, chloride 101, carbon-dioxide 28, BUN 13, creatinine 0.84, glucose 135. Lactic acid 1.0. Total bili 3.1, AST 1161, ALT 813, alk phos 155. Ammonia 53. CPK is 54, troponin 0.01. CRP 7. Amylase 28, lipase less than 10. Acetaminophen level less than 15. EKG shows normal sinus rhythm with a first-degree AV block and a left bundle- branch block, rate is 63, QTC 457, inverted T-waves in I and aVL. This is consistent with EKG from 2017. Liver ultrasound reads as: large amount of overlying bowel gas limits on sonographic image. There is no intrahepatic biliary duct dilation, but the common bile duct is not visualized. Abdomen and pelvis CT reads as: there has been minimal progression of the oral contrast with most of the contrast residing in the gastric lumen. Please correlate to signs or symptoms of gastroparesis and/or bowel dysmotility. There is questionable wall thickening of the distal gastric antrum up to the pylorus, but this could simply be the result of underdistention. In the proximal small bowel, there are air fluid levels without wall thickening or definite surrounding inflammatory change of indeterminate clinical significance. There is questionable identification of a diminutive appendix. Nevertheless, there are no acute inflammatory changes in the right lower quadrant characteristic of acute appendicitis. The patient is status post cholecystectomy and the common bile duct is not measured greater than 6 mm. There are additional chronic and degenerative changes described in the body of the report that are unlikely to be related to the patient's current presentation. ASSESSMENT AND PLAN: Mr. Perez is a 58-year-old male with past medical history of hypertension, hyperlipidemia, and status post cholecystectomy who presents to the emergency room today with severe left upper quadrant pain and was found to have elevated liver enzymes. The patient will be admitted to observation for: 1. Abdominal pain and elevated liver enzymes. The etiology of this unclear and acute hepatitis panel is pending at this time. The patient is not a drinker and I do not think that this represents any sort of chronic process. His liver ultrasound was normal without evidence of cirrhosis. His symptoms sound very concerning for pancreatitis, though lab work is not reflective of an acute pancreatitis. The emergency room physician spoke with Dr. Guthrie who advised that the patient should have an MRCP tomorrow as there is concern that there may be some duct obstruction and biliary colic from a residual gallbladder stone. The imaging does not particularly support this, although the MRCP would give us a definitive answer. At this point, he will remain n.p.o. We will recheck is liver enzymes in the morning. I will hydrate him with IV fluids. I have ordered morphine p.r.n. for any recurrent abdominal pain. 2. Hypertension. The patient is not on any outpatient medications. At this point, his systolic blood pressure is in the 140s and may be slightly elevated due to pain. We will continue to watch this, but I will not medicate at this time. 3. Hyperlipidemia. The patient is diet controlled. I will check a lipid profile in the morning. 4. Fluids, electrolytes, and nutrition. As noted above, I will rehydrate the patient with normal saline. He does not need any electrolyte repletion at this point and he will be n.p.o. for his MRCP tomorrow. 5. Code status. The patient will be a full code. 6. DVT prophylaxis. According to the DVT risk assessment, the patient scores a 2 putting him at moderate risk. I have ordered SCDs. TIME SPENT: Approximately 60 minutes were spent on this admission, greater than half of that time spent [id number] with the patient and his obtaining my history and performing my physical exam and reviewing the plan of care. This case has been reviewed with my attending, Dr. He, who is in agreement with the plan of care. PAMELLA BERRY, CHURNER [id number]/[facility] #: [id number] TAWANDA
[2018-08-03 03:55] LABS: Urine Appearance Clear; Urine Bilirubin Negative (Negative); Urine Blood Negative (Negative); Urine Color Amber; Urine Glucose Negative (Negative); Urine Ketones Negative (Negative); Urine Nitrite Negative (Negative); Urine Protein Negative (Negative); Urine Specific Gravity 1.023 (1.010-1.030); Urine Urobilinogen Negative (Negative)
[2018-08-03] MEDS: NS 0.9% 1000 ML* 1,000 ML IV SCH ×3 (04:49→22:28)
[2018-08-03 07:10] LABS: ABS Basophils 0 10^3/ul (0-0.2); ABS Eosinophils 0.1 10^3/ul (0-0.6); ABS Monocytes 0.5 10^3/ul (0-0.8); ABS Neutrophils 2.8 10^3/ul (1.5-7.7); ABS Nucleated RBC 0 10^3/ul; Eosinophil % 2.2 %; Hematocrit 41 % (42-52); Hemoglobin 13.8 g/dl (14.0-18.0); Lymphocyte % 22.3 %; Mean Corpuscular HGB Conc 34 g/dl (31-36); Mean Corpuscular Hemoglobin 31 pg (27-31); Mean Corpuscular Volume 93 fL (80-94); Mean Platelet Volume 9.2 fL (7.4-10.4); Nucleated Red Blood Cells % 0.1; Platelet Count 150 10^3/ul (150-450); Red Blood Count 4.43 10^6/ul (4.00-5.40); Red Cell Distribution Width 14 % (10.5-15); White Blood Count 4.4 10^3/ul (3.5-10.8)
[2018-08-03 07:28] LABS: Albumin 3.4 g/dL (3.2-5.2); Albumin/Globulin Ratio 1.1 (1-3); BUN/Creatinine Ratio 13.5 (8-20); Calcium 8.3 mg/dL (8.6-10.3); EGFR Non-African American 108.6 (>60); HDL Cholesterol 42.3 mg/dL; Potassium 3.8 mmol/L (3.5-5.0); Total Bilirubin 4.9 mg/dL (0.2-1.0); Total Protein 6.4 g/dL (6.4-8.9)
[2018-08-03 13:24] LABS: Hepatitis B Surface Antigen Nonreactive (Nonreactive)
[2018-08-03 13:49] LABS: Hepatitis C Antibody Nonreactive (Nonreactive)
--- NOTE | 2018-08-03 16:21 | PN ---
Progress Note - Progress Note Date of Service: 08/03/18 Note: doing well, no pain, some fullness in epigastrium when he eats; no f/c MRCP did NOT show a stone or obstruction denies any new meds; only med is Vit B3 supplement, he is on 500mg q day now, had been on doses up to 1 gram; LFTs on that dose were nml per him no family hx autoimmune dz; pt has lichen planus of mouth VS; 97.3, 141/81, 61, 18 gen: nad, alert abd: +bs, soft, nt/nd skin: no rash Hgb 13.8, plts 150, INR 0.94 bili 4.9 from 3.1 ast 757 from 1161 alt 863 from 813 alk 181 from 155 MRCP; no obstruction 58 yo with increased lfts; still suspicious for biliary pathology; may still need ERCP to look at duct; will check for other causes of increased lfts; AIH, PBC ???Vit b3 tox (pt stopped on 07-30-18, had been on for>1 year) Dinesh Guthrie MD
--- NOTE | 2018-08-03 17:17 | PN ---
Subjective Date of Service: 08/03/18 Interval History: Mr. Perez is feeling better today. He has not had any further abd pain. Concerned that his B12 vitamin may be causing elevated liver enzymes. Denies CP , SOB, N/V/D. He is hungry. Family History: Unchanged from Admission Social History: Unchanged from Admission Past Medical History: Unchanged from Admission Objective Active Medications: Sodium Chloride (Ns 0.9% 1000 Ml*) 1,000 mls @ 125 mls/hr IV PER RATE JAMI Morphine Sulfate (Morphine Inj ((Syringe))*) 2 mg IV Q4H PRN PAIN - MILD Ondansetron HCl (Zofran Inj*) 4 mg IV Q4H PRN NAUSEA/VOMITING Vital Signs - 8 hr 08/03/18 11:05 Temperature 97.3 F Pulse Rate 61 Respiratory 18 Rate Blood Pressure 141/81 (mmHg) O2 Sat by Pulse 99 Oximetry Oxygen Devices in Use Now: None Appearance: Middle-aged male sitting in bed in NAD Eyes: - - Mild scleral icterus Ears/Nose/Mouth/Throat: Mucous Membranes Moist Neck: NL Appearance and Movements; NL JVP, Trachea Midline Respiratory: Symmetrical Chest Expansion and Respiratory Effort, Clear to Auscultation Cardiovascular: NL Sounds; No Murmurs; No JVD, RRR Abdominal: No Hepatosplenomegaly, - - Very mild tenderness to palpation of epigastric region; Normoactive bowel sounds; Soft and nondistended Extremities: No Edema Skin: No Rash or Ulcers Neurological: Alert and Oriented x 3 Lines/Tubes/Other Access: Clean, Dry and Intact Peripheral IV Result Diagrams: 08/03/18 06:39 08/03/18 06:39 Assess/Plan/Problems-Billing Assessment: Mr. Perez is a 58 yo male with PMH of HTN, HLD, and cholecystectomy in Jun 2017 who presented to the ED with c/o worsening abd pain and was found to have elevated liver enzymes with unknown etiology. - Patient Problems (1) Elevated LFTs Code(s): R94.5 - ABNORMAL RESULTS OF LIVER FUNCTION STUDIES Comment: - No hepatomegaly - Elevated bilirubin, AST/ALT and alk phos on admission; bili slightly worse today with + scleral icterus, AST improved, ALT and alk phos unchanged - Acute hepatitis panel negative - Unclear etiology; possible that there was a residual stone after cholecystectomy and that stone was passed as there are no stones noted on imaging - MRCP today unremarkable; liver US unremarkable for cirrhotic changes or fatty liver - Appreciate GI consult; check autoimmune labs for source of hepatitis and possible ERCP tomorrow - Continue IVF - NPO after midnight for possible ERCP - Recheck CMP in the AM (2) Abdominal pain Code(s): R10.9 - UNSPECIFIED ABDOMINAL PAIN Comment: - Worsening over the last 2 weeks and present on arrival to ED, but resolved after 1 dose of morphine and has not recurred - Continue morphine PRN (3) Hypertension Code(s): I10 - ESSENTIAL (PRIMARY) HYPERTENSION Comment: - Slightly hypertensive with SBPs in the 140s - Will hold off on antihypertensives at this time (4) Hyperlipidemia Code(s): E78.5 - HYPERLIPIDEMIA, UNSPECIFIED Comment: - Diet controlled - Lipid panel shows good control (5) DVT prophylaxis Current Visit: Yes Status: Acute Code(s): RWK8851 - SNOMED Code(s): 423788441 Comment: - SCDs (6) Full code status Code(s): Z78.9 - OTHER SPECIFIED HEALTH STATUS Comment: Status and Disposition: Observation for continued elevation of LFTs. Possible ERCP in the AM. Attending: Bianca Strong
[2018-08-03 18:14] LABS: Albumin/Globulin Ratio 1.5 (1-3); Globulin 2.6 g/dL (2-4); Indirect Bilirubin 2.4 mg/dL (0.3-1.0); Total Protein 6.6 g/dL (6.4-8.9)
[2018-08-04] MEDS: NS 0.9% 1000 ML* 1,000 ML IV SCH (05:45)
[2018-08-04 06:26] LABS: AST 366 U/L (13-39); Albumin 3.4 g/dL (3.2-5.2); Albumin/Globulin Ratio 1.1 (1-3); Alkaline Phosphatase 205 U/L (34-104); Anion Gap 7 mmol/L (2-11); BUN/Creatinine Ratio 11.5 (8-20); Blood Urea Nitrogen 9 mg/dL (6-24); CO2 Carbon Dioxide 27 mmol/L (22-32); Calcium 8.2 mg/dL (8.6-10.3); Chloride 105 mmol/L (101-111); EGFR Non-African American 102.2 (>60); Globulin 3.1 g/dL (2-4); Glucose 110 mg/dL (70-100); Potassium 3.8 mmol/L (3.5-5.0); Sodium 139 mmol/L (135-145); Total Protein 6.5 g/dL (6.4-8.9)
[2018-08-04 06:44] LABS: ALT 647 U/L (7-52)
[2018-08-04 09:23] LABS: Amylase 23 U/L (29-103)
[2018-08-04] MEDS ORDERED: Morphine INJ* 2 MG/ML 1 ML SYRINGE (TWO MG - NEW SYRINGE VERSION) IV PRN (10:49)
--- NOTE | 2018-08-04 10:50 | PN ---
Subjective Date of Service: 08/04/18 Interval History: Mr. Perez had significant abd pain after eating dinner last night. His last meal had been prior to admission, when he first developed 8/10 abd pain. He had a low fat lunch yesterday which he tolerated well. He had a low fat dinner, though did have some pork which he noted to be "fatty." A few hours later, he developed 8/10 epigastric pain, radiating to the RUQ. Worse with laying, better with sitting. One dose of morphine relieved the pain and he has been pain-free since then. He does feel as though he appears slightly more jaundice than yesterday. Denies CP, SOB, N/V/D. Family History: Unchanged from Admission Social History: Unchanged from Admission Past Medical History: Unchanged from Admission Objective Active Medications: Sodium Chloride (Ns 0.9% 1000 Ml*) 1,000 mls @ 125 mls/hr IV PER RATE JAMI Morphine Sulfate (Morphine Inj ((Syringe))*) 2 mg IV Q4H PRN PAIN Ondansetron HCl (Zofran Inj*) 4 mg IV Q4H PRN NAUSEA/VOMITING Vital Signs - 8 hr 08/04/18 08/04/18 08/04/18 02:52 03:45 03:50 Temperature 98.7 F Pulse Rate 77 Respiratory 20 18 Rate Blood Pressure 152/80 (mmHg) O2 Sat by Pulse 96 Oximetry 08/04/18 07:09 Temperature 98.4 F Pulse Rate 74 Respiratory 16 Rate Blood Pressure 153/79 (mmHg) O2 Sat by Pulse 96 Oximetry Oxygen Devices in Use Now: None Appearance: Middle-aged male sitting in bed in NAD Eyes: - - Scleral icterus present Ears/Nose/Mouth/Throat: Mucous Membranes Moist Neck: NL Appearance and Movements; NL JVP, Trachea Midline Respiratory: Symmetrical Chest Expansion and Respiratory Effort, Clear to Auscultation Cardiovascular: NL Sounds; No Murmurs; No JVD, RRR Abdominal: No Hepatosplenomegaly, - - Slight tenderness to deep palpation of epigastric region Extremities: No Edema Skin: No Rash or Ulcers Neurological: Alert and Oriented x 3 Lines/Tubes/Other Access: Clean, Dry and Intact Peripheral IV Nutrition: Taking PO's Result Diagrams: 08/03/18 06:39 08/04/18 05:50 Assess/Plan/Problems-Billing Assessment: Mr. Perez is a 58 yo male with PMH of HTN, HLD, and cholecystectomy in Jun 2017 who presented to the ED with c/o worsening abd pain and was found to have elevated liver enzymes with unknown etiology. - Patient Problems (1) Elevated LFTs Code(s): R94.5 - ABNORMAL RESULTS OF LIVER FUNCTION STUDIES Comment: - No hepatomegaly - Elevated bilirubin, AST/ALT and alk phos on admission; bili slightly worse today with + scleral icterus, AST improved, ALT and alk phos relatively unchanged - Acute hepatitis panel negative - Unclear etiology; possible that there was a residual stone after cholecystectomy and that stone was passed as there are no stones noted on imaging - MRCP today unremarkable; liver US unremarkable for cirrhotic changes or fatty liver - Appreciate GI consult; pending autoimmune labs for source of hepatitis - Continue IVF - Plan for ERCP with Dr. Beck today (2) Abdominal pain Code(s): R10.9 - UNSPECIFIED ABDOMINAL PAIN Comment: - Worsening over the last 2 weeks and present on arrival to ED, resolved after 1 dose of morphine; recurred last night after eating and was again relieved with morphine - History and physical exam are highly suggesetive of pancreatitis, though normal amylase, lipase, and CT unremarkable - Continue morphine PRN (3) Hypertension Code(s): I10 - ESSENTIAL (PRIMARY) HYPERTENSION Comment: - Slightly hypertensive with SBPs in the 150s; suspect this is secondary to pain - Will hold off on antihypertensives at this time (4) Hyperlipidemia Code(s): E78.5 - HYPERLIPIDEMIA, UNSPECIFIED Comment: - Diet controlled - Lipid panel shows good control (5) DVT prophylaxis Current Visit: Yes Status: Acute Code(s): [id number] - SNOMED Code(s): 713142246 Comment: - SCDs (6) Full code status Code(s): Z78.9 - OTHER SPECIFIED HEALTH STATUS Comment: Status and Disposition: Inpatient continued elevation of LFTs. ERCP today. Anticipate d/c home when LFTs are stable and trending down. Attending: Letty Lopez
[2018-08-04] MEDS ORDERED: Buffered Lidocaine 0.9% SYRIN* 5 ML/SYR SYRINGE INTRADERM ONE (14:45)
[2018-08-04] MEDS ORDERED: Succinylcholine* 20 MG/ML 10 ML VIAL ONE (15:34)
[2018-08-04] MEDS ORDERED: fentaNYL* 50 MCG/ML 2 ML VIAL (100 MCG VIAL) ONE (15:34)
[2018-08-04] MEDS ORDERED: Propofol* 10 MG/ML 20 ML BTL ONE (15:34)
[2018-08-04] MEDS ORDERED: Famotidine IV* 10 MG/ML 2 ML (20 mg) ONE (15:34)
[2018-08-04] MEDS ORDERED: Cisatracurium* 2 MG/ML MDV 5 ML ONE (15:34)
[2018-08-04] MEDS ORDERED: Midazolam* 1 MG/ML 2 ML VIAL (2 MG) ONE (15:34)
[2018-08-04] MEDS ORDERED: Naloxone* 0.4 MG/ML 1 ML VIAL IV PRN (16:35)
[2018-08-04] MEDS ORDERED: fentaNYL* 50 MCG/ML 2 ML VIAL (100 MCG VIAL) IV PRN (16:35)
[2018-08-04] MEDS ORDERED: PROCHLORPERAZINE INJ 5 MG/ML 2 ML VIAL IV PRN (16:35)
[2018-08-04] MEDS ORDERED: DiMENhydriNATE IV* 50 MG/ML VIAL IV PUSH PRN (16:35)
[2018-08-04] MEDS ORDERED: diPHENhydraMINE IV* 50 MG/ML 1 ml VIAL (BENADRYL) IV PRN (16:35)
[2018-08-04] MEDS ORDERED: Neostigmine Methylsulfate* 1 MG/ML 10 ML VIAL (1 mg/ml) ONE (16:43)
[2018-08-04] MEDS ORDERED: Glycopyrrolate IV* 0.2 MG/ML 1 ML VIAL ONE (16:51)
[2018-08-04] MEDS: Lactated Ringers 1000 ML Bag* 1,000 ML IV SCH (19:23)
--- NOTE | 2018-08-04 22:12 | PRO ---
DATE: 08/04/18 - ROOM #[id number] REFERRING PHYSICIAN: Alma Wyman* PROCEDURE: ERCP with balloon occlusion cholangiogram and 3 passes of balloon at 10.5 to 11 mm inflation through distal common duct. INDICATION: This 58-year-old man who had a cholecystectomy 13 months ago, came to the hospital with 2 weeks of abdominal pain. It was reminiscent of what he had experienced before his gallbladder was removed. Cholecystectomy took place at [facility] after he had ERCP at [facility], 06/30/17, with sphincterotomy and removal of 6 to 7 mm distal common bile duct stone. Over the last 36 hours, in the hospital, he has had recurring pain. MRCP yesterday was negative. The patient continued to have pain through the evening and his LFTs have not really improved significantly. He is particularly afraid of eating fatty foods that seems to have triggered symptoms over the last couple of weeks. He also noted that his urine, that had appeared somewhat car repairer pullman, was becoming dark again. He has not had any fever or elevated white count. His course was reviewed and a decision was made to proceed with ERCP given the uncertainty. Informed consent was obtained in a detailed discussion including risks and technical failure. ENDOSCOPIST: Dr. Beck. ANESTHESIA: Dr. Perez. FINDINGS: He is a tall, large-framed man, of average weight, in no overt distress at this time. Bowel sounds are normal. He is soft and nontender. He was positioned in a semi-prone position and padded. ERCP: Esophagus - 20% to 30% views were normal. Stomach - 40% views were normal including the antrum and prepyloric antrum. Duodenum - normal mucosa seen. The second and third portions appear normal. With the scope opposite the papilla, the effects of a prior sphincterotomy were evident with the pancreatic duct seeming to exit about two-thirds of the way down the exposed papilla. The cleft for cannulation was at the top of the sphincterotomy scar. The sphincterotome inclined about 1/3rd, entered the duct, and a wire was cannulated deep into liver, first pass. Dye injected, outlined a slender common duct and no stone was seen. An exchange was made for a balloon. This was passed to the proximal common duct and then withdrawn at 10.5 mm and a balloon occlusion cholangiogram done. No filling defect was seen. There was very little dye in the cystic duct remnant. Dye did fill the intrahepatic area. The balloon was brought through the duodenal wall at 10.5 mm, snug, but not tight, and there was no ecchymosis or bleeding. No stone was delivered. Dye then spilled readily. This balloon occlusion cholangiogram and withdrawal was done 2 more times, with no stone delivered and prompt drainage of dye. The procedure was terminated. IMPRESSION: 1. Status post remote sphincterotomy with normal common bile duct. 2. Biliary colic - at this time with no mechanical blockage of the common duct it is expected pain will cease. He likely passed the stone last night and LFTs are having a delayed resolution. [id number]/[facility] #: [id number] TAWANDA
[2018-08-05] MEDS: Lactated Ringers 1000 ML Bag* 1,000 ML IV SCH (03:26)
[2018-08-05 10:32] LABS: Albumin 3.3 g/dL (3.2-5.2); Albumin/Globulin Ratio 1.1 (1-3); Indirect Bilirubin 1.5 mg/dL (0.3-1.0); Total Protein 6.3 g/dL (6.4-8.9)
[2018-08-05 11:12] VITALS: BP 144/67
--- NOTE | 2018-08-05 23:35 | DS ---
CC: Dr. Alma Wyman; Dr. Andrei Beck * DISCHARGE SUMMARY: DATE OF ADMISSION: 08/02/18 DATE OF DISCHARGE: 08/05/18 PRIMARY CARE PROVIDER: Dr. Alma Wyman. ATTENDING PHYSICIAN: Dr. Letty Lopez * (dictated by Pamella Berry NP). PRIMARY DIAGNOSES: 1. Elevated liver enzymes secondary to biliary colic. 2. Abdominal pain. SECONDARY DIAGNOSES: 1. Hypertension. 2. Hyperlipidemia. STUDIES WHILE IN THE HOSPITAL: 1. EKG on 08/02/18, shows normal sinus rhythm with a rate of 63, QTc 457, first - degree AV block, left bundle-branch block. 2. Abdomen and pelvis CT on 08/02/18, reads as there has been minimal progression of the oral contrast with most of the contrast residing in the gastric lumen. Please correlate to signs or symptoms of gastroparesis and/or bowel dysmotility. There is questionable wall thickening on the distal gastric antrum up to the pylorus, but this could simply be the result of underdistention. In the proximal small bowel, there are air-fluid levels without wall thickening or definite surrounding inflammatory change of indeterminate clinical significance. There is questionable identification of a diminutive appendix. Nevertheless, there are no acute inflammatory changes in the right lower quadrant characteristic of acute appendicitis. The patient is status post cholecystectomy and the common bile duct does not measure greater than 6 mm. There are additional chronic and degenerative changes noted in the body of the report that are unlikely to be directly related to the patient's current clinical presentation. 3. Liver ultrasound on 08/02/18, reads as a large amount of overlying bowel gas limits sonographic imaging. There is no intrahepatic biliary duct dilation , but the common bile duct is not visualized. 4. MRCP on 08/03/18, reads as negative exam. HISTORY OF PRESENT ILLNESS AND HOSPITAL COURSE: Mr. Perez is a 58-year-old male with past medical history of hypertension, hyperlipidemia, and cholecystectomy in June 2017; who presented to the emergency room on with complaints of left upper quadrant abdominal pain. Please see the history and physical by myself for complete summary of the events leading up to this hospitalization. In short, the patient had mild pain some before [place] , although on the day of admission, he noted that night and morning, he had severe pain that he reported was crippling and 8/10 at the worst. This was somewhat relieved by lying on his stomach or bending over. He was not able to manage his pain and presented to [facility] who referred him to the emergency room because of concern for pancreatitis. In the emergency room, his pain was relieved with 1 dose of morphine. He had imaging as noted above. He was found to have elevated liver enzymes including elevated total bilirubin, AST , ALT, and alk phos. Amylase and lipase were normal. Because of the concern for duct obstruction, he was admitted by the hospitalist service. The patient's pain did not recur after leaving the emergency room. He was seen in consultation by Dr. Guthrie from Gastroenterology who recommended that the patient have an MRCP as there was concern that there may have been residual stones in the bile duct causing duct obstruction. The patient had an MRCP as noted above and because of the negative exam, the patient was placed back on a low-fat diet. On 08/03/18, the patient had a low-fat diet for dinner and after that experienced significant abdominal pain through the night up to 8/10 which was again relieved with morphine. Because of the recurrence of pain, Dr. Guthrie spoke with Dr. Beck and they planned for an ERCP. The patient was kept n.p.o. and ERCP was done on 08/04/18, at which time, Dr. Beck noticed that the bile duct appeared normal. He felt as though there was biliary colic and there was no noted mechanical blockage of the common bile duct. He felt as though it was likely that the patient had passed a stone the night before when he experienced abdominal pain and LFTs were having a delayed resolution. LFTs remained elevated on 08/03/18 and 08/04/18. After the ERCP, the patient was placed back on a clear diet. As of this morning, the patient was placed on a low-fat diet. He had breakfast and lunch which he tolerated well without any recurring pain. He has no nausea, vomiting, or abdominal tenderness. As of today, the patient's liver enzymes are improving. I note that he was noted to have a negative hepatitis panel and labs were checked for autoimmune hepatitis, although there is some doubt those labs are still pending at this time. Though it appears unlikely that this represents an autoimmune hepatitis. The patient has been cleared for discharge by Gastroenterology. The patient is anxious to return home. Mr. Perez is stable for discharge today. Vital signs are as follows: Temp 97.8, heart rate 71, respiratory rate 16, oxygen saturation 97% on room air, and blood pressure 144/67. DISCHARGE MEDICATIONS: Continued medications: Vitamin B3 one cap p.o. daily. DISCHARGE PLAN: Mr. Perez will be discharged home. Activity will be as tolerated. Diet will be low fat. I did have a long conversation with the patient in regards to diet as he has a good understanding of what the low-fat diet would entail. I did also speak with the patient about his blood pressure that he was noted to be mildly hypertensive while here with systolic blood pressures in the 130s to 150s. He will follow up with his primary care provider as he is not sure he wants to start any antihypertensive. He should follow up with his PCP in 4 to 7 days. He has been advised to return to the emergency room or nearest hospital for any worsening of symptoms, shortness of breath, lightheadedness, dizziness, chest discomfort, high fevers, chills, night sweats, loss of consciousness, or any other worrisome signs or symptoms. This is a summarized report of a complex medical history and hospital stay. For further details, please see the entire medical record. TIME SPENT: Approximately 45 minutes were spent on this discharge. PAMELLA BERRY, VASHTI [id number]/[facility] #: [id number] TAWANDA
[2018-08-07 13:15] LABS: Mitochondria M2 Antibody <0.1 U
== END 2018-08-05 14:00 | disposition home or self-care (01) | DRG 446 ==
LOC: ED 13:39 → MED 18:35 → OBSVTOIN 08-04 16:38
PROVIDERS: ADMIT Internal Medicine; ATTEND Internal Medicine
PROC: BF10YZZ Fluoroscopy of Bile Ducts using Other Contrast (ICD-10-PCS; 2018-08-04)
PROC: 0F798ZZ Dilation of Common Bile Duct, Via Natural or Artificial Opening Endoscopic (ICD-10-PCS; principal; 2018-08-04 15:30)
DX: K80.50 Calculus of bile duct without cholangitis or cholecystitis without obstruction (principal); I10 Essential (primary) hypertension; F41.9 Anxiety disorder, unspecified; G43.909 Migraine, unspecified, not intractable, without status migrainosus; E78.5 Hyperlipidemia, unspecified; M54.30 Sciatica, unspecified side; Z98.52 Vasectomy status; Z88.8 Allergy status to other drugs, medicaments and biological substances; Z90.49 Acquired absence of other specified parts of digestive tract; Z88.5 Allergy status to narcotic agent; Z88.2 Allergy status to sulfonamides; Z82.49 Family history of ischemic heart disease and other diseases of the circulatory system; Z83.3 Family history of diabetes mellitus
CPT/HCPCS: 36415; 74177; 74181; 74328; 76376; 76705; 80053; 80061; 80074; 80076; 80329; 81003; 82140; 82150; 82550; 83036; 83516; 83605; 83690; 83735; 83880; 84484; 85025; 85610; 86038; 86140; 93005; 99283; G0480; J0330; J2250; J2270; J2405; J2704; J2710; J3010; Q9967

== ENCOUNTER 2020-09-06 14:24 | Inpatient (IN) ==
[2020-09-06] MEDS ORDERED: Atropine 0.1 MG/ML 10 ml SYR (1 mg) ONE (14:31)
[2020-09-06 15:58] LABS: ABS Eosinophils 0.1 10^3/ul (0-0.6); ABS Lymphocytes 0.8 10^3/ul (1.0-4.8); ABS Monocytes 0.5 10^3/ul (0-0.8); ABS Neutrophils 6.4 10^3/ul (1.5-7.7); Eosinophil % 0.8 %; Hematocrit 43 % (42-52); Hemoglobin 14.3 g/dL (14.0-18.0); Lymphocyte % 10.2 %; Mean Corpuscular HGB Conc 33 g/dL (31-36); Mean Corpuscular Hemoglobin 31 pg (27-31); Mean Corpuscular Volume 92 fL (80-94); Mean Platelet Volume 8.7 fL (7.4-10.4); Platelet Count 194 10^3/uL (150-450); Red Blood Count 4.65 10^6 /uL (4.18-5.48); Red Cell Distribution Width 14 % (10-15); White Blood Count 7.9 10^3/uL (3.5-10.8)
[2020-09-06 16:24] LABS: Albumin/Globulin Ratio 1.4 (1-3); BUN/Creatinine Ratio 21.3 (8-20); Calcium 8.7 mg/dL (8.6-10.3); EGFR African American 105.5 (>60); EGFR Non-African American 87.2 (>60); Globulin 2.9 g/dL (2-4); Magnesium 2.2 mg/dL (1.9-2.7); Potassium 3.9 mmol/L (3.5-5.0); Total Bilirubin 0.5 mg/dL (0.2-1.0); Total Protein 6.9 g/dL (6.4-8.9)
[2020-09-06 16:26] LABS: Activated Partial Thrombo Time 26.5 seconds (26.0-38.0); INR 0.99 (0.82-1.09)
[2020-09-06 16:41] LABS: Troponin I 0.01 ng/mL (<0.03)
[2020-09-06 20:23] LABS: TSH Ultra Thyroid Stim Horm 2.65 mcIU/mL (0.34-5.60)
[2020-09-06] MEDS ORDERED: Heparin 5000 UNITS/ML 1 mL VIAL SUBCUT SCH (22:00)
[2020-09-07] MEDS ORDERED: NS 0.9% 1000 ml BAG 1,000 ML IV SCH (06:00)
[2020-09-07 06:35] LABS: BUN/Creatinine Ratio 16.5 (8-20); Calcium 8.8 mg/dL (8.6-10.3); EGFR African American 102.8 (>60); Potassium 4.4 mmol/L (3.5-5.0)
[2020-09-07] MEDS ORDERED: Clindamycin 900 MG/D5W BAG 900 MG/50 ML BAG IVPB ONE (07:00)
[2020-09-07] MEDS ORDERED: Perflutren Lipid Microsphere 3 ML VIAL ONE (07:53)
[2020-09-07] MEDS ORDERED: Lidocaine 1% VIAL 10 MG/ML VIAL ONE (09:26)
[2020-09-07] MEDS ORDERED: Iohexol 300 (CONTRAST) 10 ML SDV ONE (09:27)
[2020-09-07] MEDS ORDERED: fentaNYL 100 mcg/2 ml 50 MCG/ML VIAL ONE (10:04)
[2020-09-07] MEDS ORDERED: Midazolam 5 mg/5 ml VIAL 1 mg/ml 5 ml VIAL (5 mg) ONE ×2 (10:04→10:20)
[2020-09-07] MEDS: Clindamycin 300 MG/D5W BAG 300 MG/50 ML BAG IV SCH ×2 (16:18→21:56)
[2020-09-08] MEDS: Clindamycin 300 MG/D5W BAG 300 MG/50 ML BAG IV SCH ×2 (03:25→09:58)
[2020-09-08 07:24] VITALS: BP 148/88
== END 2020-09-08 11:45 | disposition home or self-care (01) | DRG 243 ==
LOC: ED 14:24 → MEDTELE 17:38
PROVIDERS: ADMIT Internal Medicine; ATTEND Hospitalist